=== PATIENT | female | born 1950 | race Caucasian/White ===

== ENCOUNTER → 2024-03-30 10:59 | Outpatient (REF) | payer MEDICARE, OTHER, SELFPAY | LOC: WDC 10:59 | PROVIDERS: ATTENDING PHYSICIAN Family Medicine | DX: Z12.31 Encounter for screening mammogram for malignant neoplasm of breast (principal) | CPT/HCPCS: 77063; 77067 ==

== ENCOUNTER → 2024-12-08 08:41 | Outpatient (REF) | payer MEDICARE, OTHER, SELFPAY | LOC: RAD 08:41 | PROVIDERS: ATTENDING PHYSICIAN Internal Medicine Endocrinology, Diabetes & Metabolism; FAMILY PHYSICIAN Emergency Medicine | DX: E21.3 Hyperparathyroidism, unspecified (principal) | CPT/HCPCS: 78071; A9500 ==

== ENCOUNTER → 2024-12-28 11:32 | Outpatient (REF) | payer MEDICARE, OTHER, SELFPAY | LOC: RAD 11:32 | PROVIDERS: ATTENDING PHYSICIAN Internal Medicine Endocrinology, Diabetes & Metabolism; FAMILY PHYSICIAN Emergency Medicine | DX: M81.0 Age-related osteoporosis without current pathological fracture (principal); E21.3 Hyperparathyroidism, unspecified; E83.52 Hypercalcemia | CPT/HCPCS: 76536; 77080; 77081 ==

== ENCOUNTER → 2025-02-16 13:52 | Outpatient (REF) | payer MEDICARE, OTHER, SELFPAY ==
[2025-02-16 14:22] LABS: Hematocrit 45.2 % (37.0-47.0); Hemoglobin 15.3 g/dL (12.0-16.0); Mean Corp Hgb Conc. 33.8 g/dL (33.0-37.0); Mean Corpuscular Hgb 30.4 pg (27.0-31.0); Mean Corpuscular Volume 89.9 fL (81.0-99.0); Platelet Count 228 10^3/uL (130-400); Red Blood Cell Count 5.03 10^6/uL (4.20-5.40); Red Cell Dist. Width 13.6 % (11.5-14.5); White Blood Cell Count 9.2 10^3/uL (4.8-10.8)
[2025-02-16 14:23] LABS: Ionized Calcium 1.33 mMOL/L (1.15-1.33)
[2025-02-16 14:45] LABS: Blood Urea Nitrogen 25 mg/dl (7-17); Calcium 11.1 mg/dl (8.4-10.2); Carbon Dioxide 27 mmol/L (22-30); Chloride 107 mmol/L (98-107); Glucose 99 mg/dl (70-99); Potassium 4.7 mmol/L (3.5-5.1); Sodium 143 mmol/L (135-145); eGFR 52.73
[2025-02-17 09:47] LABS: Intact PTH 236.1 pg/ml (13.6-85.8)
== END ==
LOC: REG 13:52
PROVIDERS: ATTENDING PHYSICIAN Physician Assistant; FAMILY PHYSICIAN Emergency Medicine; OTHER PHYSICIAN Surgery
DX: E21.3 Hyperparathyroidism, unspecified (principal)
CPT/HCPCS: 36415; 80048; 82306; 82330; 83970; 85027

== ENCOUNTER 2025-02-20 13:03 | Outpatient (RCR) | payer MEDICARE, OTHER, SELFPAY ==
[2025-02-20 13:17] VITALS: BP 136/80
[2025-02-20] MEDS: EVENITY 105 MG SC ×2 (13:36→13:37)
== END 2025-02-21 09:16 | disposition home or self-care (01) ==
LOC: OID 13:03
PROVIDERS: ATTENDING PHYSICIAN Internal Medicine Endocrinology, Diabetes & Metabolism; FAMILY PHYSICIAN Emergency Medicine
DX: M81.0 Age-related osteoporosis without current pathological fracture (principal)
CPT/HCPCS: 96372; J3111

== ENCOUNTER 2025-03-23 12:48 | Outpatient (RCR) | payer MEDICARE, OTHER, SELFPAY ==
[2025-03-23 13:07] VITALS: BP 126/63
[2025-03-23] MEDS: EVENITY 105 MG SC ×2 (13:27)
== END 2025-03-24 23:59 | disposition home or self-care (01) ==
LOC: OID 12:48
PROVIDERS: ATTENDING PHYSICIAN Internal Medicine Endocrinology, Diabetes & Metabolism; FAMILY PHYSICIAN Emergency Medicine
DX: M81.0 Age-related osteoporosis without current pathological fracture (principal)
CPT/HCPCS: 96372; J3111

== ENCOUNTER 2025-04-17 13:36 | Outpatient (RCR) | payer MEDICARE, OTHER, SELFPAY ==
[2025-04-17 13:42] VITALS: BP 134/83
[2025-04-17] MEDS: EVENITY 105 MG SC ×2 (13:48)
== END 2025-04-18 09:27 | disposition home or self-care (01) ==
LOC: OID 13:36
PROVIDERS: ATTENDING PHYSICIAN Internal Medicine Endocrinology, Diabetes & Metabolism; FAMILY PHYSICIAN Emergency Medicine
DX: M81.0 Age-related osteoporosis without current pathological fracture (principal)
CPT/HCPCS: 96372; J3111

== ENCOUNTER 2025-05-15 13:25 | Outpatient (RCR) | payer MEDICARE, OTHER, SELFPAY ==
[2025-05-15 13:41] VITALS: BP 129/69
[2025-05-15] MEDS: EVENITY 105 MG SC ×2 (14:02)
== END 2025-05-16 07:58 | disposition home or self-care (01) ==
LOC: OID 13:25
PROVIDERS: ATTENDING PHYSICIAN Internal Medicine Endocrinology, Diabetes & Metabolism; FAMILY PHYSICIAN Emergency Medicine
DX: M81.0 Age-related osteoporosis without current pathological fracture (principal)
CPT/HCPCS: 96372; J3111

== ENCOUNTER → 2025-05-15 14:23 | Outpatient (REF) | payer MEDICARE, OTHER, SELFPAY | LOC: RCS 14:23 | PROVIDERS: ATTENDING PHYSICIAN Physician Assistant; FAMILY PHYSICIAN Emergency Medicine | DX: E21.3 Hyperparathyroidism, unspecified (principal) | CPT/HCPCS: 93005 ==

== ENCOUNTER 2025-06-12 13:23 | Outpatient (RCR) | payer MEDICARE, OTHER, SELFPAY ==
[2025-06-12 14:11] VITALS: BP 145/73
[2025-06-12] MEDS: EVENITY 105 MG SC ×2 (14:22)
== END 2025-06-13 10:53 | disposition home or self-care (01) ==
LOC: OID 13:23
PROVIDERS: ATTENDING PHYSICIAN Internal Medicine Endocrinology, Diabetes & Metabolism; FAMILY PHYSICIAN Emergency Medicine
DX: M81.0 Age-related osteoporosis without current pathological fracture (principal)
CPT/HCPCS: 96372; J3111

== ENCOUNTER → 2025-07-02 15:19 | Outpatient (REF) | payer MEDICARE, OTHER, SELFPAY | LOC: RAD 15:19 | PROVIDERS: ATTENDING PHYSICIAN Internal Medicine Critical Care Medicine; FAMILY PHYSICIAN Emergency Medicine | DX: R91.1 Solitary pulmonary nodule (principal) | CPT/HCPCS: 71250 ==

== ENCOUNTER 2025-07-10 13:40 | Outpatient (RCR) | payer MEDICARE, OTHER, SELFPAY ==
[2025-07-10 13:51] VITALS: BP 129/77
[2025-07-10] MEDS: EVENITY 105 MG SC ×2 (14:07)
== END 2025-07-11 08:18 | disposition home or self-care (01) ==
LOC: OID 13:40
PROVIDERS: ATTENDING PHYSICIAN Internal Medicine Endocrinology, Diabetes & Metabolism; FAMILY PHYSICIAN Emergency Medicine
DX: M81.0 Age-related osteoporosis without current pathological fracture (principal)
CPT/HCPCS: 96372; J3111

== ENCOUNTER 2025-08-07 13:26 | Outpatient (RCR) | payer MEDICARE, OTHER, SELFPAY ==
[2025-08-07] MEDS: EVENITY 105 MG SC ×2 (13:38→13:39)
[2025-08-07 13:52] VITALS: BP 146/65
== END 2025-08-08 10:26 | disposition home or self-care (01) ==
LOC: OID 13:26
PROVIDERS: ATTENDING PHYSICIAN Internal Medicine Endocrinology, Diabetes & Metabolism; FAMILY PHYSICIAN Emergency Medicine
DX: M81.0 Age-related osteoporosis without current pathological fracture (principal)
CPT/HCPCS: 96372; J3111

== ENCOUNTER 2025-09-11 13:35 | Outpatient (RCR) | payer MEDICARE, OTHER, SELFPAY ==
[2025-09-11 13:51] VITALS: BP 118/74
[2025-09-11] MEDS: EVENITY 105 MG SC ×2 (14:02→14:03)
== END 2025-09-12 11:16 | disposition home or self-care (01) ==
LOC: OID 13:35
PROVIDERS: ATTENDING PHYSICIAN Internal Medicine Endocrinology, Diabetes & Metabolism; FAMILY PHYSICIAN Emergency Medicine
DX: M81.0 Age-related osteoporosis without current pathological fracture (principal)
CPT/HCPCS: 96372; J3111

== ENCOUNTER 2025-10-09 13:32 | Outpatient (RCR) | payer MEDICARE, OTHER, SELFPAY ==
[2025-10-09 13:39] VITALS: BP 130/75
[2025-10-09] MEDS: EVENITY 105 MG SC ×2 (13:45→13:46)
== END 2025-10-10 09:51 | disposition home or self-care (01) ==
LOC: OID 13:32
PROVIDERS: ATTENDING PHYSICIAN Internal Medicine Endocrinology, Diabetes & Metabolism; FAMILY PHYSICIAN Emergency Medicine
DX: M81.0 Age-related osteoporosis without current pathological fracture (principal)
CPT/HCPCS: 96372; J3111